=== PATIENT | male | born 1995 | race Hispanic/Latino ===

== ENCOUNTER 2020-07-23 09:22 | Outpatient (CLI) | payer BC, SELFPAY | END 2020-07-23 09:23 | disposition home or self-care (01) | LOC: BICRAD 09:22 | PROVIDERS: ATTEND Physician Assistant | DX: M79.672 Pain in left foot (principal); S92.355A Nondisplaced fracture of fifth metatarsal bone, left foot, initial encounter for closed fracture ==

== ENCOUNTER 2021-08-22 03:32 | Emergency (ER) | payer OTHER, BC | END 2021-08-22 03:58 | LOC: ERS 03:32 | DX: Z02.89 Encounter for other administrative examinations (principal); Z04.1 Encounter for examination and observation following transport accident | CPT/HCPCS: 99283 ==